=== PATIENT | female | born 1975 | race American Indian/Alaskan Native ===

== ENCOUNTER 2017-05-31 17:35 | Emergency (ER) | payer SELFPAY ==
--- NOTE | 2017-05-31 20:12 | XRay Report ---
FINAL REPORT EXAM: XR KNEE 3V LT HISTORY: left (KNEE) lower leg pain TECHNIQUE: Left knee three views PRIORS: None. FINDINGS: No fracture is identified. No dislocation seen. No evidence of joint effusion. Patella demonstrates normal positioning. No acute bony abnormality identified. IMPRESSION: Negative knee series
[2017-05-31] MEDS ORDERED: CATAPRES PO ONE (21:41)
--- NOTE | 2017-05-31 21:59 | Cat Scan Report ---
FINAL REPORT EXAM: CT HEAD/BRAIN WO CON HISTORY: headache/blurred vision TECHNIQUE: CT head without contrast PRIORS: None. FINDINGS: No acute intra-axial or extra-axial hemorrhage is identified. There is no evidence of midline shift or mass effect. The ventricles and sulci are within normal limits. Martínez-white matter differentiation is intact. No acute parenchymal abnormalities seen. Bony calvarium is grossly intact. Visualized portions of the mastoids and paranasal sinuses are unremarkable. IMPRESSION: Negative CT head
[2017-05-31 22:51] VITALS: BP 181/108
[2017-06-01] MEDS ORDERED: ANTIVERT ONE (02:06)
[2017-06-01] MEDS ORDERED: CATAPRES ONE (02:06)
--- NOTE | 2017-06-02 01:26 | ED Elopement Review ---
ED Pt Elopement review - Call Back decision Pt Call Back Decision: Pt to F/U with PMD
== END 2017-06-01 01:00 | disposition left against medical advice (07) ==
LOC: ED 17:35
DX: M79.605 Pain in left leg (principal); I10 Essential (primary) hypertension; Z53.21 Procedure and treatment not carried out due to patient leaving prior to being seen by health care provider
CPT/HCPCS: 70450

== ENCOUNTER 2019-05-18 18:05 | Emergency (ER) | payer MEDICAID, OTHER ==
[2019-05-18] MEDS ORDERED: NACL 0.9% 1000 ML 1,000 ML IV ONE (19:03)
[2019-05-18] MEDS ORDERED: PEPCID IV ONE (19:03)
[2019-05-18] MEDS ORDERED: NORMODYNE IV ONE (19:03)
[2019-05-18] MEDS ORDERED: TORADOL IV ONE (19:03)
[2019-05-18] MEDS ORDERED: BENTYL IM ONE (19:03)
[2019-05-18] MEDS ORDERED: ZOFRAN IV ONE (19:03)
[2019-05-18 19:33] LABS: Basophils % (Auto) 0.6 % (0.0-1.8); Eosinophils # (Auto) 0.2 K/mm3 (0.0-0.4); Eosinophils % (Auto) 2.9 % (0.0-4.3); Hemoglobin 12.8 gm/dl (10.1-14.3); Lymphocytes # (Auto) 3.1 K/mm3 (1.2-5.4); Lymphocytes % (Auto) 42.3 % (13.4-35.0); Mean Corpuscular HGB Conc 34 % (30-34); Mean Corpuscular Volume 94 fl (79-97); Monocytes # (Auto) 0.9 K/mm3 (0.0-0.8); Monocytes % (Auto) 12.6 % (0.0-7.3); Platelet Count 272 K/mm3 (140-440); Red Blood Count 4.03 M/mm3 (3.65-5.03); Red Cell Distribution Width 14.2 % (13.2-15.2)
[2019-05-18 19:49] LABS: Alanine Aminotransferase 11 units/L (7-56); Albumin 3.7 g/dL (3.9-5); BUN/Creatinine Ratio 17; Blood Urea Nitrogen 15 mg/dL (7-17); Calcium 9.4 mg/dL (8.4-10.2); Hemolysis Index 7
[2019-05-18] MEDS ORDERED: APRESOLINE IV ONE (19:50)
[2019-05-18] MEDS ORDERED: TORADOL ONE (19:55)
[2019-05-18 21:23] LABS: Bilirubin,Urine NEG (Negative); Blood,Urine NEG (Negative); Color,Urine Colorless (Yellow); Mucus,Urine FEW /HPF; Protein,Urine <15 mg/dL mg/dL (Negative); RBC,Urine < 1.0 /HPF (0.0-6.0); Urobilinogen,Urine < 2.0 mg/dL (<2.0); WBC,Urine < 1.0 /HPF (0.0-6.0)
--- NOTE | 2019-05-18 21:24 | Cat Scan Report ---
CT abdomen pelvis w con INDICATION: diffuse abd pain. TECHNIQUE: All CT scans at this location are performed using CT dose reduction for ALARA by means of automated e xposure control. COMPARISON: None available. FINDINGS: Lung bases are clear. Liver, gallbladder, spleen and pancreas are negative. Kidneys and adrenals are unremarkable. Ring gastroplasty in the proximal stomach. Abdominal aorta is normal in size. Pelvis Normal appendix. 3.6 cm right ovarian cyst. Uterus and left ovary appear negative. Urinary bladder is unremarkable. No free fluid or inflammation. No skeletal lesions. IMPRESSION: 1. 3.6 cm right ovarian cyst. Otherwise negative exam. Signer Name: Renny Joiner MD Signed: 05/18/2019 9:20 PM Workstation Name: [id number]
[2019-05-18 21:25] VITALS: BP 183/111
--- NOTE | 2019-05-18 22:12 | Emergency Department Report ---
ED Abdominal Pain HPI - General Chief Complaint: Abdominal Pain Stated Complaint: ABD PAIN/HEADACHE/HTN Time Seen by Provider: 05/18/19 19:03 Source: patient Mode of arrival: Stretcher Limitations: No Limitations - History of Present Illness Initial Comments: Patient is a 44-year-old Female who is presenting with 3-4 days of abdominal pain. Patient states his present for years and she is not sure if this happens because of stress or different foods. She gets to 3 episodes yearly. Patient states someone in the past or she may have problems. Patient also has been diagnosed with ovarian cyst and fibroids. Patient denies any nausea vomiting but states that she does did have one episode of loose stools. Patient states she has not had a bowel movement in several days. Patient denies any fevers chills. Patient states the pain is 10 out of 10 as crampy and diffuse. Patient also was noted to have elevated blood pressure prior to arrival. Patient states she has no chest pain shortness of breath but does have a mild headache. This is been noncompliant with blood pressure medicines for several months. Severity scale (0 -10): 2 - Related Data Previous Rx's Medication Instructions Recorded Last Taken Type Atenolol [Tenormin] 50 mg PO BID #60 tablet 03/03/16 Unknown Rx Lisinopril/Hydrochlorothiazide 1 tab PO TID #60 tablet 03/03/16 Unknown Rx [Zestoretic 20-12.5 mg] Allergies Allergy/AdvReac Type Severity Reaction Status Date / Time No Known Allergies Allergy Unverified 03/03/16 10:03 ED Review of Systems ROS: Stated complaint: ABD PAIN/HEADACHE/HTN Other details as noted in HPI Comment: All other systems reviewed and negative ED Past Medical Hx - Past Medical History Previous Medical History?: Yes Hx Hypertension: Yes Hx CVA: Yes - Surgical History Past Surgical History?: Yes Additional Surgical History: x 2. right eye surgery - Social History Smoking Status: Never Smoker Substance Use Type: None - Medications Home Medications: Home Medications Medication Instructions Recorded Confirmed Last Taken Type Atenolol [Tenormin] 50 mg PO BID #60 tablet 03/03/16 Unknown Rx Lisinopril/Hydrochlorothiazide 1 tab PO TID #60 tablet 03/03/16 Unknown Rx [Zestoretic 20-12.5 mg] ED Physical Exam - General Limitations: No Limitations General appearance: alert, anxious, in distress - Head Head exam: Present: atraumatic, normocephalic - Eye Eye exam: Present: normal appearance, PERRL, EOMI - ENT ENT exam: Present: mucous membranes moist - Neck Neck exam: Present: normal inspection - Respiratory Respiratory exam: Present: normal lung sounds bilaterally. Absent: respiratory distress, wheezes, rales, rhonchi - Cardiovascular Cardiovascular Exam: Present: regular rate, normal rhythm, normal heart sounds. Absent: systolic murmur, diastolic murmur, rubs, gallop - GI/Abdominal GI/Abdominal exam: Present: soft, tenderness (diffuser), normal bowel sounds. Absent: distended, guarding, rebound, rigid - Extremities Exam Extremities exam: Present: normal inspection - Back Exam Back exam: Present: normal inspection - Neurological Exam Neurological exam: Present: alert, oriented X3 - Psychiatric Psychiatric exam: Present: normal affect, normal mood - Skin Skin exam: Present: warm, dry, intact, normal color. Absent: rash ED Course Vital Signs 05/18/19 05/18/19 05/18/19 18:41 18:59 19:57 Temperature 98.5 F Pulse Rate 66 65 Respiratory 16 Rate Blood Pressure 203/124 209/123 Blood Pressure 202/158 [Left] O2 Sat by Pulse 99 Oximetry 05/18/19 21:24 Temperature Pulse Rate 74 Respiratory 18 Rate Blood Pressure Blood Pressure 183/111 [Left] O2 Sat by Pulse 100 Oximetry ED Medical Decision Making - Lab Data Result diagrams: 05/18/19 19:15 05/18/19 19:15 Lab Results 05/18/19 05/18/19 05/18/19 Range/Units 19:15 19:15 19:15 WBC 7.3 (4.5-11.0) K/mm3 RBC 4.03 (3.65-5.03) M/mm3 Hgb 12.8 (10.1-14.3) gm/dl Hct 38.0 (30.3-42.9) % MCV 94 (79-97) fl MCH 32 (28-32) pg MCHC 34 (30-34) % RDW 14.2 (13.2-15.2) % Plt Count 272 (140-440) K/mm3 Lymph % (Auto) 42.3 H (13.4-35.0) % Whiteside % (Auto) 12.6 H (0.0-7.3) % Eos % (Auto) 2.9 (0.0-4.3) % Baso % (Auto) 0.6 (0.0-1.8) % Lymph # 3.1 (1.2-5.4) K/mm3 Whiteside # 0.9 H (0.0-0.8) K/mm3 Eos # 0.2 (0.0-0.4) K/mm3 Baso # 0.0 (0.0-0.1) K/mm3 Seg Neutrophils % 41.6 (40.0-70.0) % Seg Neutrophils # 3.0 (1.8-7.7) K/mm3 Sodium 138 (137-145) mmol/L Potassium 3.9 (3.6-5.0) mmol/L Chloride 103.2 (98-107) mmol/L Carbon Dioxide 25 (22-30) mmol/L Anion Gap 14 mmol/L BUN 15 (7-17) mg/dL Creatinine 0.9 (0.7-1.2) mg/dL Estimated GFR > 60 ml/min BUN/Creatinine Ratio 17 % Glucose 93 (65-100) mg/dL Calcium 9.4 (8.4-10.2) mg/dL Total Bilirubin 0.20 (0.1-1.2) mg/dL AST 16 (5-40) units/L ALT 11 (7-56) units/L Alkaline Phosphatase 60 (35-129) units/L Total Protein 7.2 (6.3-8.2) g/dL Albumin 3.7 L (3.9-5) g/dL Albumin/Globulin Ratio 1.1 % Lipase 34 (13-60) units/L HCG, Qual Negative (Negative) Urine Color (Yellow) Urine Turbidity (Clear) Urine pH (5.0-7.0) Ur Specific [place] (1.003-1.030) Urine Protein (Negative) mg/dL Urine Glucose (UA) (Negative) mg/dL Urine Ketones (Negative) mg/dL Urine Blood (Negative) Urine Nitrite (Negative) Urine Bilirubin (Negative) Urine Urobilinogen (<2.0) mg/dL Ur Leukocyte Esterase (Negative) Urine WBC (Auto) (0.0-6.0) /HPF Urine RBC (Auto) (0.0-6.0) /HPF U Epithel Cells (Auto) (0-13.0) /HPF Urine Mucus /HPF 05/18/19 Range/Units 21:10 WBC (4.5-11.0) K/mm3 RBC (3.65-5.03) M/mm3 Hgb (10.1-14.3) gm/dl Hct (30.3-42.9) % MCV (79-97) fl MCH (28-32) pg MCHC (30-34) % RDW (13.2-15.2) % Plt Count (140-440) K/mm3 Lymph % (Auto) (13.4-35.0) % Whiteside % (Auto) (0.0-7.3) % Eos % (Auto) (0.0-4.3) % Baso % (Auto) (0.0-1.8) % Lymph # (1.2-5.4) K/mm3 Whiteside # (0.0-0.8) K/mm3 Eos # (0.0-0.4) K/mm3 Baso # (0.0-0.1) K/mm3 Seg Neutrophils % (40.0-70.0) % Seg Neutrophils # (1.8-7.7) K/mm3 Sodium (137-145) mmol/L Potassium (3.6-5.0) mmol/L Chloride (98-107) mmol/L Carbon Dioxide (22-30) mmol/L Anion Gap mmol/L BUN (7-17) mg/dL Creatinine (0.7-1.2) mg/dL Estimated GFR ml/min BUN/Creatinine Ratio % Glucose (65-100) mg/dL Calcium (8.4-10.2) mg/dL Total Bilirubin (0.1-1.2) mg/dL AST (5-40) units/L ALT (7-56) units/L Alkaline Phosphatase (35-129) units/L Total Protein (6.3-8.2) g/dL Albumin (3.9-5) g/dL Albumin/Globulin Ratio % Lipase (13-60) units/L HCG, Qual (Negative) Urine Color Colorless (Yellow) Urine Turbidity Clear (Clear) Urine pH 8.0 H (5.0-7.0) Ur Specific [place] 1.025 (1.003-1.030) Urine Protein <15 mg/dl (Negative) mg/dL Urine Glucose (UA) Neg (Negative) mg/dL Urine Ketones Neg (Negative) mg/dL Urine Blood Neg (Negative) Urine Nitrite Neg (Negative) Urine Bilirubin Neg (Negative) Urine Urobilinogen < 2.0 (<2.0) mg/dL Ur Leukocyte Esterase Neg (Negative) Urine WBC (Auto) < 1.0 (0.0-6.0) /HPF Urine RBC (Auto) < 1.0 (0.0-6.0) /HPF U Epithel Cells (Auto) 3.0 (0-13.0) /HPF Urine Mucus Few /HPF - Radiology Data [facility] [address] [place] [address] Cat Scan Report Signed Patient: DAISY ANGELES MR# : [id number] : 1975 Acct:[id number] Age/Sex: 44 / F ADM Date: 05/18/19 Loc: ED Attending Dr: Ordering Physician: LUÍS GARCIA MD Date of Service: 05/18/19 Procedure(s): CT abdomen pelvis w con Accession Number(s): [id number] cc: LUÍS GARCIA MD CT abdomen pelvis w con INDICATION: diffuse abd pain. TECHNIQUE: All CT scans at this location are performed using CT dose reduction for ALARA by means of automated exposure control. COMPARISON: None available. FINDINGS: Lung bases are clear. Liver, gallbladder, spleen and pancreas are negative. Kidneys and adrenals are unremarkable. Ring gastroplasty in the proximal stomach. Abdominal aorta is normal in size. Pelvis Normal appendix. 3.6 cm right ovarian cyst. Uterus and left ovary appear negative. Urinary bladder is unremarkable. No free fluid or inflammation. No skeletal lesions. IMPRESSION: 1. 3.6 cm right ovarian cyst. Otherwise negative exam. Signer Name: Renny Joiner MD Signed: 05/18/2019 9:20 PM Workstation Name: [id number] Transcribed By: TM Dictated By: Renny Joiner MD Electronically Authenticated By: Renny Joiner MD Signed Date/Time: 05/18/192119 - Medical Decision Making Patient is a 44-year-old female who presenting with some diffuse abdominal pain for last several days. Patient's CT shows no actual abnormality with the bowels to be seen on this film. Patient will be referred to GI. Patient could have irritable bowel syndrome however she does not have a formal diagnosis. Patient started on Bentyl and Ultram. Patient also started on Norvasc for elevated blood pressure. Patient given primary care physician as well. Critical care attestation.: If time is entered above; I have spent that time in minutes in the direct care of this critically ill patient, excluding procedure time. ED Disposition Clinical Impression: Hypertensive urgency Abdominal pain Qualifiers: Abdominal location: generalized Qualified Code(s): R10.84 - Generalized abdominal pain Disposition: - TO HOME OR SELFCARE Is pt being admited?: No Does the pt Need Aspirin: No Condition: Stable Instructions: Abdominal Pain (ED), Acute Abdominal Pain (ED) Referrals: KATHLEEN POWELL MD [Primary Care Provider] - 3-5 Days [facility] [Provider Group] - 3-5 Days
== END 2019-05-18 22:33 | disposition home or self-care (01) ==
LOC: ED 18:05
DX: I16.0 Hypertensive urgency (principal); R10.84 Generalized abdominal pain; Z86.73 Personal history of transient ischemic attack (TIA), and cerebral infarction without residual deficits; Z98.890 Other specified postprocedural states; Z79.899 Other long term (current) drug therapy
CPT/HCPCS: 36415; 74177; 80053; 81001; 83690; 84703; 85025; 96372; 96374; 96375; 99284; J0360; J0500; J1885; J2405; J7030; Q9967; 96361